=== PATIENT | female | born 1995 | race Caucasian/White ===

== ENCOUNTER 2023-02-01 06:39 | Emergency (ER) | payer MEDICAID ==
[~2023-02-01] VITALS: Ht 162.6 cm; Wt 59.0 kg
[2023-02-01 07:16] VITALS: O2SAT 98
[2023-02-01] MEDS ORDERED: KETOROLAC 60MG/2ML VIAL IM ONE (08:30)
[2023-02-01] MEDS ORDERED: DEXAMETHASONE 2MG TABLET PO ONE (08:30)
[2023-02-01 09:36] VITALS: BP 112/74; PULSE 71; RESP 18; TEMP 99
== END 2023-02-01 09:38 | disposition home or self-care (01) ==
LOC: ER 06:39
DX: J02.9 Acute pharyngitis, unspecified (principal)
CPT/HCPCS: 81025; 96372; 99283; J8540; J1885; Z7610